=== PATIENT | female | born 1990 | race American Indian/Alaskan Native ===

== ENCOUNTER 2021-11-29 04:25 | Emergency (ER) | payer MEDICAID ==
[2021-11-29] MEDS ORDERED: SODIUM CHLORIDE 0.9% 1000 ML 1,000 ML IV ONE ×2 (05:35→09:06)
[2021-11-29] MEDS ORDERED: MORPHINE 2 MG/1 ML INJ IV ONE (05:35)
[2021-11-29] MEDS ORDERED: ONDANSETRON 4 MG/2 ML INJ ONE (05:39)
[2021-11-29 06:12] LABS: Basophils # (Auto) 0.1 K/mm3 (0.0-0.1); Basophils % (Auto) 0.4 % (0.0-1.8); Eosinophils % (Auto) 0.1 % (0.0-4.3); Hematocrit 39.8 % (30.3-42.9); Hemoglobin 13.2 gm/dl (10.1-14.3); Lymphocytes # (Auto) 1.1 K/mm3 (1.2-5.4); Lymphocytes % (Auto) 7.7 % (13.4-35.0); Mean Corpuscular HGB Conc 33 % (30-34); Mean Corpuscular Volume 94 fl (79-97); Monocytes # (Auto) 0.8 K/mm3 (0.0-0.8); Monocytes % (Auto) 5.4 % (0.0-7.3); Platelet Count 207 K/mm3 (140-440); Red Blood Count 4.23 M/mm3 (3.65-5.03); Red Cell Distribution Width 13.6 % (13.2-15.2)
[2021-11-29 06:15] LABS: Bacteria,Urine 1+ /HPF (Negative); Bilirubin,Urine NEG (Negative); Blood,Urine MOD (Negative); Color,Urine Yellow (Yellow); Mucus,Urine 1+ /HPF; Urobilinogen,Urine < 2.0 mg/dL (<2.0)
[2021-11-29 06:32] LABS: Albumin 4.1 g/dL (3.9-5); BUN/Creatinine Ratio 9; Blood Urea Nitrogen 7 mg/dL (7-17); Calcium 8.4 mg/dL (8.4-10.2); Hemolysis Index 26
[2021-11-29 06:39] LABS: Alanine Aminotransferase < 5 units/L (7-56)
[2021-11-29] MEDS ORDERED: MORPHINE 4 MG/1 ML INJ IV STA (09:06)
--- NOTE | 2021-11-29 09:26 | Emergency Department Report ---
ED Abdominal Pain HPI - General Chief Complaint: Abdominal Pain Stated Complaint: ABD PAIN/KIDNEY STONES Time Seen by Provider: 11/29/21 09:05 Source: patient Mode of arrival: Ambulatory Limitations: No Limitations - History of Present Illness MD Complaint: abdominal pain -: Sudden, days(s) Location: R flank Radiation: suprapubic Severity: moderate Severity scale (0 -10): 8 Quality: aching, sharp Consistency: constant Associated Symptoms: nausea, hematuria. denies: constipation, dysuria - Related Data Previous Rx's Medication Instructions Recorded Last Taken Type Acetaminophen/Codeine [Tylenol #3] 1 tab PO Q6H PRN #15 tab 11/29/21 Unknown Rx Nitrofurantoin [place]/M-Cryst 100 mg PO Q12HR #20 capsule 11/29/21 Unknown Rx [Macrobid CAP] Tamsulosin [Flomax] 0.4 mg PO QDAY #10 cap 11/29/21 Unknown Rx Allergies Allergy/AdvReac Type Severity Reaction Status Date / Time ibuprofen [From Motrin] Allergy Hives Verified 11/29/21 05:35 tramadol Allergy Itching Verified 11/29/21 05:35 ED Review of Systems ROS: Stated complaint: ABD PAIN/KIDNEY STONES Other details as noted in HPI Comment: All other systems reviewed and negative ED Past Medical Hx - Past Medical History Previous Medical History?: No - Surgical History Past Surgical History?: No - Medications Home Medications: Home Medications Medication Instructions Recorded Confirmed Last Taken Type Acetaminophen/Codeine [Tylenol #3] 1 tab PO Q6H PRN #15 tab 11/29/21 Unknown Rx Nitrofurantoin [place]/M-Cryst 100 mg PO Q12HR #20 capsule 11/29/21 Unknown Rx [Macrobid CAP] Tamsulosin [Flomax] 0.4 mg PO QDAY #10 cap 11/29/21 Unknown Rx ED Physical Exam - General Limitations: No Limitations General appearance: alert, in no apparent distress - Head Head exam: Present: atraumatic, normocephalic - Eye Eye exam: Present: normal appearance - ENT ENT exam: Present: mucous membranes moist - Neck Neck exam: Present: normal inspection - Respiratory Respiratory exam: Present: normal lung sounds bilaterally. Absent: respiratory distress - Cardiovascular Cardiovascular Exam: Present: regular rate, normal rhythm. Absent: systolic murmur, diastolic murmur, rubs, gallop - GI/Abdominal GI/Abdominal exam: Present: soft, tenderness, normal bowel sounds - Extremities Exam Extremities exam: Present: normal inspection, normal capillary refill - Back Exam Back exam: Present: normal inspection, CVA tenderness (R). Absent: muscle spasm, paraspinal tenderness, vertebral tenderness - Neurological Exam Neurological exam: Present: alert, oriented X3 - Psychiatric Psychiatric exam: Present: normal affect, normal mood - Skin Skin exam: Present: warm, dry, intact, normal color. Absent: rash ED Course Vital Signs 11/29/21 11/29/21 11/29/21 05:28 05:46 05:50 Temperature 97.1 F L Pulse Rate 90 64 Respiratory 18 34 H 18 Rate Blood Pressure Blood Pressure 151/80 [Left] O2 Sat by Pulse 99 100 98 Oximetry 11/29/21 11/29/21 11/29/21 06:00 06:16 06:30 Temperature Pulse Rate 63 68 65 Respiratory 36 H 34 H 30 H Rate Blood Pressure 134/81 134/81 134/81 Blood Pressure [Left] O2 Sat by Pulse 99 100 100 Oximetry 11/29/21 11/29/21 11/29/21 06:46 07:00 07:16 Temperature Pulse Rate 71 74 70 Respiratory 28 H 19 25 H Rate Blood Pressure 134/81 147/81 160/88 Blood Pressure [Left] O2 Sat by Pulse 100 100 100 Oximetry 11/29/21 11/29/21 11/29/21 07:30 07:46 08:00 Temperature Pulse Rate 72 71 69 Respiratory 32 H 34 H 16 Rate Blood Pressure 155/87 155/87 157/91 Blood Pressure [Left] O2 Sat by Pulse 100 100 100 Oximetry 11/29/21 11/29/21 11/29/21 08:16 08:30 08:46 Temperature Pulse Rate 69 76 72 Respiratory 31 H 35 H 38 H Rate Blood Pressure 157/91 153/99 153/99 Blood Pressure [Left] O2 Sat by Pulse 100 100 100 Oximetry 11/29/21 11/29/21 09:00 10:56 Temperature Pulse Rate 74 60 Respiratory 20 18 Rate Blood Pressure 150/74 Blood Pressure 132/75 [Left] O2 Sat by Pulse 96 99 Oximetry ED Medical Decision Making - Lab Data Result diagrams: 11/29/21 05:51 11/29/21 05:51 - Radiology Data Radiology results: report reviewed [facility] [address] [place] [address] Cat Scan Report Signed Patient: SUZE MOSHER MR#: [id number] : 1990 Acct:[id number] Age/Sex: 31 / F ADM Date: 11/29/21 Loc: ED Attending Dr: Ordering Physician: SUZETTE BEDOYA Date of Service: 11/29/21 Procedure(s): CT abdomen pelvis wo con Accession Number(s): [id number] cc: SUZETTE BEDOYA CT ABDOMEN AND PELVIS WITHOUT CONTRAST HISTORY: flank and right pelvic pain COMPARISON: None. TECHNIQUE: Axial CT images were obtained through the abdomen and pelvis without IV contrast. Sagittal and coronal reformatted images. All CT scans at this location are performed using CT dose reduction for ALARA by means of automated exposure control. FINDINGS: CT ABDOMEN: Lung Bases: Clear. Liver: No significant abnormality. Biliary: No significant abnormality. Spleen: No significant abnormality. Unenlarged. Pancreas: No significant abnormality. Adrenals: No significant abnormality. Kidneys: There is severe right hydronephrosis and right perinephric stranding. There appear to be at least 3 stones in the distal right ureter with the largest measuring 5 mm. There are 2 or 3 punctate calyceal stones in the right kidney as well. A punctate calyceal stone is identified in the mid left kidney. No left ureteral stone or hydronephrosis. No obvious cystic disease or mass. Lymphatics: No lymphadenopathy. Vasculature: No significant abnormality. Bowel/Peritoneum: No significant abnormality. No free air. No free fluid. Normal appendix CT PELVIS: : No significant abnormality. Osseous Structures: No significant abnormality. Additional Findings: None IMPRESSION: There are multiple stones in the distal right ureter as described with severe right hydronephrosis and perinephric stranding. Punctate nonobstructing renal calyceal stones bilaterally. Signer Name: Shivam Jiang Jr, MD Signed: 11/29/2021 10:20 AM Workstation Name: [id number] Transcribed By: TTR Dictated By: SHIVAM JIANG JR, MD Electronically Authenticated By: SHIVAM JIANG JR, MD Signed Date/Time: 11/29/21 1020 DD/ 1016 TD/TT: - Medical Decision Making 31-year-old female Radha emerged from complaining of right flank pain associated with some dysuria and possible bloody urination. On CT scan it revealed that there was kidney stone tube to the distal ureter which is most likely the cause of her pain and also some kidney stones in the kidney preparing to to come down. She was treated with emergency department with with multiple treatments and morphine in conjunction with Zofran. Her symptoms did mitigate IV fluids were provided I discussed with patient in great detail the need to follow-up with with urology for definitive management and treatment of her kidney stones. I have discussed with the patient the level of uncertainty with undifferentiated abdominal pain and clearly explained the need to follow-up as noted on the discharge instructions, or return to the Emergency Department immediately if the pain worsens, develops fever, persistent and uncontrollable vomiting, or for any new symptoms or concerns. I discussed with the patient that this presentation today for abdominal pain could represent a significant risk for an acute abdominal process. Although the tests in the ED were essentially normal, there is still a possibility of a process such as appendicitis, diverticulitis, cholecystitis, ulcer, early bowel obstruction, mesenteric ischemia, kidney stone, or even kidney infection which could subsequently cause disability or . The patient understands that they must return within 24 hours for a recheck or see their physician within 24 hours for re-exam due to the possibility of significant surgical or medical process. Critical care attestation.: If time is entered above; I have spent that time in minutes in the direct care of this critically ill patient, excluding procedure time. ED Disposition Clinical Impression: Kidney stone on right side Disposition: 01 HOME / SELF CARE / HOMELESS Is pt being admited?: No Does the pt Need Aspirin: No Condition: Stable Instructions: Low-Purine Eating Plan, Kidney Stones, Renal Colic, [id number], Laser Therapy for Kidney Stones, Care After, Abdominal Pain (ED) Prescriptions: Tamsulosin [Flomax] 0.4 mg PO QDAY #10 cap Nitrofurantoin [place]/M-Cryst [Macrobid CAP] 100 mg PO Q12HR #20 capsule Acetaminophen/Codeine [Tylenol #3] 1 tab PO Q6H PRN #15 tab PRN Reason: Pain Referrals: [facility]TE [facility] [Provider Group] - 3-5 Days PRIMARY CAREMD [Primary Care Provider] - 3-5 Days
--- NOTE | 2021-11-29 10:24 | Cat Scan Report ---
CT ABDOMEN AND PELVIS WITHOUT CONTRAST HISTORY: flank and right pelvic pain COMPARISON: None. TECHNIQUE: Axial CT images were obtained through the abdomen and pelvis without IV contrast. Sagittal and coronal reformatted images. All CT scans at this location are performed using CT dose reduction for ALARA by means of automated exposure control. FINDINGS: CT ABDOMEN: Lung Bases: Clear. Liver: No significant abnormality. Biliary: No significant abnormality. Spleen: No significant abnormality. Unenlarged. Pancreas: No significant abnormality. Adrenals: No significant abnormality. Kidneys: There is severe right hydronephrosis and right perinephric stranding. There appear to be at least 3 stones in the distal right ureter with the largest measuring 5 mm. There are 2 or 3 punctate calyceal stones in the right kidney as well. A punctate calyceal stone is identified in the mid left kidney. No left ureteral stone or hydronephrosis. No obvious cystic disease or mass. Lymphatics: No lymphadenopathy. Vasculature: No significant abnormality. Bowel/Peritoneum: No significant abnormality. No free air. No free fluid. Normal appendix CT PELVIS: : No significant abnormality. Osseous Structures: No significant abnormality. Additional Findings: None IMPRESSION: There are multiple stones in the distal right ureter as described with severe right hydronephrosis an d perinephric stranding. Punctate nonobstructing renal calyceal stones bilaterally. Signer Name: Shviam Jiang Jr, MD Signed: 11/29/2021 10:20 AM Workstation Name: [id number]
[2021-11-29 11:07] LABS: Bilirubin,Urine NEG (Negative); Blood,Urine LG (Negative); Color,Urine Straw (Yellow); Mucus,Urine FEW /HPF; Protein,Urine <15 mg/dL mg/dL (Negative); RBC,Urine < 1.0 /HPF (0.0-6.0); Urobilinogen,Urine < 2.0 mg/dL (<2.0)
[2021-11-29] MEDS ORDERED: oxyCODONE /ACETAMINOPHEN 5-325MG TAB PO ONE (11:32)
[2021-11-29] MEDS ORDERED: ONDANSETRON 4 MG ODT TAB PO STA (11:55)
[2021-11-29 12:15] VITALS: BP 135/61
== END 2021-11-29 12:15 | disposition home or self-care (01) ==
LOC: ED 04:25
DX: N20.0 Calculus of kidney (principal); Z88.5 Allergy status to narcotic agent
CPT/HCPCS: 36415; 74176; 80053; 81001; 85025; 87086; 96361; 96374; 96376; 99284; J2270; J2405; J7030; J3490; Q0162